=== PATIENT | female | born 1980 | race Two or more races ===

== ENCOUNTER 2017-08-27 00:35 | Emergency (ER) | payer SELFPAY ==
[~2017-08-27] VITALS: Ht 162.6 cm; Wt 74.3 kg
[2017-08-27] MEDS ORDERED: VITAMINS (00:45)
[2017-08-27] MEDS ORDERED: PROCHLORPERAZINE 5 MG/ML, 2ML IVPush ONE (02:30)
[2017-08-27] MEDS ORDERED: DIPHENHYDRAMINE 50 MG/ML, 1ML IVPush ONE (02:30)
[2017-08-27] MEDS ORDERED: KETOROLAC 30 MG/1 ML IVPush ONE (02:30)
[2017-08-27] MEDS ORDERED: DIPHENHYDRAMINE 50 MG/ML, 1ML ONE (03:13)
[2017-08-27] MEDS ORDERED: PROCHLORPERAZINE 5 MG/ML, 2ML ONE (03:13)
[2017-08-27] MEDS ORDERED: KETOROLAC 30 MG/1 ML ONE (03:13)
[2017-08-27 04:08] VITALS: BP 140/91
== END 2017-08-27 04:10 | disposition home or self-care (01) ==
LOC: ED 03:15
DX: G44.219 Episodic tension-type headache, not intractable (principal)
CPT/HCPCS: 70450; 96374; 96375; 99284; J0780; J1200; J1885

== ENCOUNTER 2020-02-23 13:11 | Emergency (ER) | payer SELFPAY ==
[~2020-02-23] VITALS: Ht 165.1 cm; Wt 78.6 kg
[~2020-02-23 13:11] MED LIST: VITAMINS
--- NOTE | 2020-02-23 13:40 | NUR ---
Chronic back pain, recent reported fever and general body aches. No other reported symptoms, recent trauma or recent travel.
[2020-02-23 14:10] LABS: MICROSCOPIC INDICATED
[2020-02-23 14:11] LABS: BASOPHILS # (AUTO) 0.02 x10^3/uL (0-0.1); BASOPHILS % (AUTO) 0 % (0-1); EOSINOPHILS % (AUTO) 0 % (1-7); LYMPHOCYTES # (AUTO) 1.74 x10^3/uL (1-3.4); LYMPHOCYTES % (AUTO) 27 % (22-44); MD NO; MEAN CORPUSCULAR HEMOGLOBIN 29.5 pg (27.0-34.8); MEAN CORPUSCULAR HGB CONC 33.3 g/dL (32.4-35.8); MEAN CORPUSCULAR VOLUME 88.5 fL (80-100); MEAN PLATELET VOLUME 9.3 fL (7.4-10.4); MONOCYTES # (AUTO) 0.29 x10^3/uL (0.2-0.8); MONOCYTES % (AUTO) 4 % (2-9); NEUTROPHILS # (AUTO) 4.51 x10^3/uL (1.8-6.8); NEUTROPHILS % (AUTO) 69 % (42-75); PLATELET COUNT 186 x10^3/uL (130-400); RED BLOOD COUNT 4.76 x10^6/uL (3.82-5.3); RED CELL DISTRIBUTION WIDTH 13.4 % (9.6-15.2)
[2020-02-23 14:19] LABS: ALANINE AMINOTRANSFERASE 22 U/L (12-78); ALBUMIN 3.8 g/dL (3.4-5.0); ANION GAP 4 mmol/L (5-15); CALCIUM 8.3 mg/dL (8.5-10.1); CHLORIDE 108 mmol/L (98-107); CREATININE 0.75 mg/dL (0.55-1.02)
--- NOTE | 2020-02-23 14:21 | NUR ---
STEAY AMBULATION TO BATHROOM, PT BACK RESTING IN BED. CALL LIGHT IN REACH
[2020-02-23 14:22] LABS: ALKALINE PHOSPHATASE 65 U/L (45-117); BILIRUBIN,TOTAL 0.2 mg/dL (0.2-1.0); TOTAL PROTEIN 7.8 g/dL (6.4-8.2)
--- NOTE | 2020-02-23 14:53 | NUR ---
PATIENT SITTING UP IN BED, VITAL SIGNS WITHIN NORMAL LIMITS, CALL LIGHT WITHIN REACH, NO FURTHER NEEDS AT THIS TIME.
--- NOTE | 2020-02-23 15:35 | NUR ---
PATIENT LAYING IN GURNEY, TALKING ON PHONE, CONNECTED TO MONITOR, VITAL SIGNS WITHIN NORMAL LIMITS, CALL LIGHT WITHIN REACH, NO FURTHER NEEDS AT THIS TIME.
[2020-02-23 16:15] VITALS: BP 132/91
[2020-02-23 16:20] LABS: HCG UR SG 1.018 (1.003-1.030)
--- NOTE | 2020-02-23 16:42 | NUR ---
Patient given discharge instructions and they have confirmed that they understand the instructions. Patient ambulatory with steady gait.
== END 2020-02-23 16:43 | disposition home or self-care (01) ==
LOC: ED 16:40
DX: U07.1 COVID-19 (principal); G89.29 Other chronic pain; B34.9 Viral infection, unspecified; M54.9 Dorsalgia, unspecified; R06.02 Shortness of breath
CPT/HCPCS: 36415; 71045; 80053; 81001; 81025; 85025; 87086; 87635; 99284